=== PATIENT | female | born 1995 | race Caucasian/White ===

== ENCOUNTER 2021-03-27 14:53 | Emergency (ER) | payer OTHER, SELFPAY ==
--- NOTE | 2021-03-27 14:56 | ED.GENADULT ---
HPI - General Adult General Chief complaint: Unspecified Stated complaint: stomach pain Time Seen by Provider: 03/27/21 14:56 Source: patient and RN notes reviewed History of Present Illness HPI narrative: Patient is a 25-year-old female who presents the urgent care with complaints of improving abdominal cramps. Patient states that she had some back cramps with loose stools radiating to her abdomen yesterday while working. States that her boss let her leave work but stated she would need to be seen in the facility in order to come back to work. Patient states that her symptoms have nearly subsided and she just needs a work note . Patient denies of any current abdominal pain, nausea, vomiting, diarrhea, fever. No other acute complaints. States that her last meal prior to her symptoms was a whopper from [employer]. No acute distress noted. Patient aware of the plan of care. Some parts of this dictation were generated by voice recognition software and may contain typographical and/or grammatical inaccuracies. Related Data Home Medications Medication Instructions Recorded Confirmed No Home Medications 03/27/21 03/27/21 Allergies Allergy/AdvReac Type Severity Reaction Status Date / Time No Known Allergies Allergy Verified 03/27/21 15:02 Review of Systems Review of Systems: CONSTITUTIONAL: Denies fever, chills, or sweats. EYES: Denies visual changes, redness, or discharge. ENT: Denies rhinorrhea, congestion, sore throat, or otalgia. CARDIOVASCULAR: Denies chest pain, palpitations, or edema. RESPIRATORY: Denies cough or dyspnea. GASTROINTESTINAL: Denies abdominal pain, nausea, vomiting, or diarrhea. GENITOURINARY: Denies dysuria or hematuria. SKIN: Denies rash or itching. MUSCULOSKELETAL: Denies back pain, joint pain, or myalgia. NEUROLOGIC: Denies headache, numbness, or weakness. All other systems reviewed are negative, except as documented in HPI. PMFSH Comments At the time of my signature, I reviewed and agree with the nursing past medical, surgical, social, and family history. There is no relevant family history pertinent to the patient complaint. Exam Narrative: GENERAL: This is a well-nourished, well-developed patient, in no apparent distress. HEAD: normocephalic, atraumatic. EYES: PERRL. Sclera clear/white. Vision is grossly intact. EARS: External ears normal NOSE: External nose normal with no obvious nasal discharge, nares without redness, no rhinorrhea. THROAT: Mucous membranes moist NECK: Neck supple CARDIOVASCULAR: Regular rate and rhythm without murmurs, gallops, or rubs. RESPIRATORY: Clear to auscultation. Breath sounds equal bilaterally. No wheezes, rales, or rhonchi. GASTROINTESTINAL: Abdomen soft, mild diffuse tenderness, nondistended. Bowel sounds are hyppoactive. No guarding. SKIN: warm, intact with no suspicious lesions or rash, good texture and turgor. NEURO: awake, alert, and oriented to person, place and time. There were no obvious focal neurologic abnormalities. EXTREMITIES: No clubbing, cyanosis, or edema. Course Vital Signs Vital signs: Vital Signs Temperature 98.4 F 03/27/21 15:00 Pulse Rate 93 03/27/21 15:00 Respiratory Rate 20 03/27/21 15:00 Blood Pressure 135/68 03/27/21 15:00 Pulse Oximetry 99 03/27/21 15:00 Temperature 98.4 F 03/27/21 15:00 Pulse Rate 93 03/27/21 15:00 Respiratory Rate 20 03/27/21 15:00 Blood Pressure 135/68 03/27/21 15:00 Pulse Oximetry 99 03/27/21 15:00 Reviewed Medical Decision Making MDM Narrative Medical decision making narrative: Patient stated she was not worried about any testing while at the facility. Just needs her work note that she was seen. Advised the patient to use Pepto-Bismol for any recurrent symptoms. Eat a bland diet and increase your water intake. If you develop any increase in symptoms associated with nausea, vomiting, abdominal pain or fever?go to the emergency room. Follow-up with your PCP within
[2021-03-27 15:00] VITALS: BP 135/68; PULSE 93; RESP 20; TEMP 36.9; O2SAT 99
== END 2021-03-27 15:11 | disposition home or self-care (01) ==
PROVIDERS: Emergency Provider Nurse Practitioner Family
DX: R10.9 Unspecified abdominal pain (principal)
CPT/HCPCS: 99211; G0463

== ENCOUNTER 2022-01-07 01:00 | Day surgery (SDC) | payer OTHER, SELFPAY ==
[2022-01-03 14:17] VITALS: BMI 27.9
--- NOTE | 2022-01-03 14:25 | PC.NURSE ---
Report to the Outpatient Waiting Room, entrance under the green pavilion located off [facility], at time 0600 on date 01/07/22. OR Time: 0730. - You and your visitor will be asked a series of questions to screen for COVID 19 for your protection. - Only one visitor is allowed at this time. - The patient visitor is requested to leave or wait in car when not with patient. - A mask is required within the hospital. Patients may have clear liquids (water, carbonated beverages, clear teas, apple juice) until 3 hours prior to surgery with a maximum of 20 ounces. - No food from midnight until time of surgery Take the following medications with a SIP of water the morning of surgery: NONE Medications to discontinue per physician: N/A Date to take last dose: N/A Please no make-up, nail italian, hairspray, perfume, deodorant, or body powder the day of surgery. No jewelry (including any body piercings) or valuables the day of surgery, leave them at home. Please take a shower or bath the night before, or the morning of, surgery with an antibacterial soap. Wear comfortable, loose fitting clothing. - Jewelry must be removed prior to entering the operating room. Rings and piercings that are not removed may be cut off. - The hospital will not accept responsibility for valuables. - Please leave all valuables, including medications, at home the day of surgery. If you are going home after surgery, a licensed sweeper driver must drive you home. - NO public transportation without another adult. - We recommend that an adult stay with you for 24 hours following discharge. - We also recommend that you do not drive, make important decision, drink alcoholic beverages, or take any drugs that were not prescribed by your health care provider for at least 24 hours after your discharge time. Follow any additional instructions given to you from your surgeon. If you or anyone in your household have experienced Covid symptoms in the past week, please notify your surgeon or the nurse liaison at the phone number below for possible testing. Telephone instructions given to PT - AVRIL MASON and asked if any additional questions and then verbalized understanding. Patient advised to call surgeon office or pre surgery nurse liaison [phone] if any additional questions.
--- NOTE | 2022-01-03 16:33 | PM.IMHP ---
H&P: HPI History of Present Illness Date/Time: 01/03/22 16:33 26-year-old 2 para 1 0 1 1 female presents with vaginal spotting and heart tones absent in a 10 week gestation. No significant pain or other symptoms. Chief Complaint: Missed Review of Systems Review of Systems: All systems reviewed & are unremarkable except as noted in HPI and below PMFSH Past Medical History Medical History Purulent drainage of both ears through ear tube x 7 Surgical History Surgical History History of tonsillectomy Family History Family History Grandparent Acute myocardial infarction maternal grandfather Social History Social History Smoking status: Current some day smoker Additional smoking assessment comments: SOCIAL SMOKING Alcohol intake: current Alcohol use details: RARE, WHEN NOT Substance use: current Substance use type: marijuana Other substance usage details: daily Additional living arrangements comments: DAUGHTER 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 Gender identity (if verbalized by the patient): Female Sexual Orientation (if Verbalized by the Patient): Straight or Heterosexual Spiritual care concerns: No Meds Home Medications and Allergies Home Medications Medication Instructions Recorded Confirmed Type No Home Medications 03/27/21 01/03/22 History Allergies Allergy/AdvReac Type Severity Reaction Status Date / Time No Known Allergies Allergy Verified 01/03/22 14:17 Exam Const: General: cooperative, healthy appearing and comfortable Resp: Effort & Inspection: normal respiratory effort Auscultation: clear to auscultation bilaterally Cardio: Rate: regular rate Rhythm: regular rhythm GI: Inspection: normal to inspection Auscultation: normal bowel sounds : External Female Exam: normal external appearance Speculum Exam - Vagina: normal appearance of the vagina Speculum Exam - Cervix: normal appearance of the cervix Bimanual exam- vagina & uterus: enlarged ( 10-12 week size) Bimanual Exam- Adnexa, other: normal adnexae Assessment and Plan Assessment and plan (1) Missed with demise before 20 completed weeks of gestation: Code(s): O02.1 - Missed Status: Acute Assessment and Plan: proceed with suction curettage
[2022-01-07 06:14] VITALS: BP 117/66; PULSE 102; RESP 12; TEMP 36.7; O2SAT 100
[2022-01-07] MEDS: LACTATED RINGERS 1,000 ML 30 ML IV CONT (06:45)
--- NOTE | 2022-01-07 06:45 | P.PNAN_ITS ---
Anes - Initial Pre Proc Eval Procedure: Operation Date: 01/07/22 07:30 Proposed Procedures p Suction Dilation and Curettage - Yonatan Cuello MD Date/Time: 01/07/22 06:45 Surgeon: Yonatan Cuello MD Pre Op Diagnosis: missed AB Patient Data Age: 26 Gender: F Height: 1.55 m Weight: 67.13 kg Allergies Allergy/AdvReac Type Severity Reaction Status Date / Time No Known Allergies Allergy Verified 01/03/22 14:17 Home Medications Medication Instructions Recorded Confirmed Type No Home Medications 03/27/21 01/03/22 History Patient hx anesthesia problems: none Family hx anesthesia problems: none Results Review: All pre-operative results and documents have been reviewed as part of the pre- operative evaluation. [facility], [facility] Past Medical History Medical History Purulent drainage of both ears through ear tube x 7 Surgical History Surgical History (Updated 01/07/22 @ 06:45 by Shai Jett MD) H/O myringotomy History of tonsillectomy Family History Family History Grandparent Acute myocardial infarction maternal grandfather Social History Social History Smoking status: Current some day smoker Additional smoking assessment comments: SOCIAL SMOKING Alcohol intake: current Alcohol use details: RARE, WHEN NOT Substance use: current Substance use type: marijuana Other substance usage details: daily Living arrangements: with family Additional living arrangements comments: DAUGHTER 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 Gender identity (if verbalized by the patient): Female Sexual Orientation (if Verbalized by the Patient): Straight or Heterosexual Spiritual care concerns: No Anes - Eval Final PreProcedure Day of Procedure 01/07/22 06:45 Patient weight: overweight Heart: regular rate and rhythm Lungs: clear to auscultation Airway: Mallampati scale class II Neurological: alert and oriented Last oral intake: >/= 8 hours ASA classification: II Emergent: no Anesthetic plan: proceed Anesthesia type and monitoring: general GIVS and standard monitoring Results Review: All pre-operative results and documents have been reviewed as part of the pre- operative evaluation. Informed Consent: The patient's anesthetic plan and its attendant risks and benefits were discussed with the patient/family/POA. Questions were solicited and answers provided to the satisfaction of the patient/family/POA.
--- NOTE | 2022-01-07 07:03 | WPDHPUPDATE1 ---
History and Physical Update Update Date/Time: 01/07/22 07:03 History and Physical has been reviewed, including an updated exam of the patient. There are NO changes in the patient's condition. Risks, benefits, and alternatives have been discussed and questions answered. Patient agrees to proceed with procedure.
[2022-01-07] MEDS: ACETAMINOPHEN 500 MG TABLET 1000 MG PO (07:11)
[2022-01-07 07:38] VITALS: BP 101/60; PULSE 85; RESP 16; O2SAT 93
--- NOTE | 2022-01-07 07:43 | W.PM.PROC2 ---
Procedure Note - Detailed Date of Procedure 01/07/22 Pre-op Diagnosis missed AB in 1st trimester Post-op Diagnosis Same Procedure Performed Suction curettage Surgeon Yonatan Cuello MD Anesthesia MAC Indications Missed A/B 11 weeks. Findings Moderate products of conception Description of Procedure Patient was prepped and draped in usual manner for this procedure. Cervix dilated to allow the 9 suction curette to be placed, using suction products of conception were removed.Sharp curette was used to assess the rest of the endometrial cavity with no remaining tissue. Suction curette passed 1 remaining time with no significant tissue. There was no bleeding and the patient are procedure well sent to recovery room stable condition. Estimated Blood Loss 150 Drains No Packing No Pathology Yes Complications No immediate complications Condition Stable Disposition PACU [facility] Billing Surgery - Charge Forward: Surgery Billing
[2022-01-07] MEDS: fentaNYL CITRATE INJ (*CRX) 100 MCG/2 ML VIAL 25 MCG IV PUSH (07:56)
[2022-01-07 08:10] VITALS: BP 102/53; PULSE 90; RESP 20
--- NOTE | 2022-01-07 08:18 | SUR.PHASEII ---
0818 - blood type - A positive result noted
[2022-01-07 08:40] VITALS: BP 96/59; PULSE 81; RESP 20
[2022-01-07 08:50] VITALS: BP 95/57; PULSE 81; RESP 20
== END 2022-01-07 08:53 | disposition home or self-care (01) ==
PROVIDERS: Visit Provider Obstetrics & Gynecology
PROC: (CPT 59820; principal; 2022-01-07 07:30)
DX: O02.1 Missed abortion (principal); F17.210 Nicotine dependence, cigarettes, uncomplicated; F12.90 Cannabis use, unspecified, uncomplicated
CPT/HCPCS: 59820; 36415; 85461; 88305; A9270; J2250; J2704; J3010; J7120

== ENCOUNTER 2022-04-17 15:02 | Outpatient (CLI) | payer OTHER, SELFPAY ==
--- NOTE | ~2022-04-17 | US_ITS ---
EXAMINATION: US OB <=14 wk fetus w TV DATE: 04/17/2022 15:55 INDICATION: Decreased beta-hCG levels. Pelvic pain. TECHNIQUE: Real-time transabdominal and transvaginal obstetric ultrasound. FINDINGS: No prior studies for comparison. The uterus measures 6.4 x 4.4 x 5.1 cm. There is an intrauterine gestational sac with mean sac diamet er corresponding to 5 week 3 day gestation. No evidence for pole or yolk sac. There is a small corpus luteal cyst of the left ovary measuring 1.6 cm. The right ovary is unremarkable. IMPRESSION: 1: Intrauterine gestational sac corresponding to 5 week 3 day gestation. No evidence for pole or yolk sac. This may be due to early gestational age. Recommend follow-up with serial quantitative b eta-hCG levels and ultrasound as clinically warranted. Reviewed, dictated and finalized at location B. IMPRESSION: 1: Intrauterine gestational sac corresponding to 5 week 3 day gestation. No ev idence for pole or yolk sac. This may be due to early gestational age. Re commend follow-up with serial quantitative beta-hCG levels and ultrasound as cl inically warranted.
== END 2022-04-17 15:03 | disposition home or self-care (01) ==
LOC: ANHIMG 15:04
PROVIDERS: Visit Provider Obstetrics & Gynecology
DX: O20.0 Threatened abortion (principal); Z3A.01 Less than 8 weeks gestation of pregnancy
CPT/HCPCS: 76801; 76817

== ENCOUNTER 2022-04-20 09:41 | Emergency (ER) | payer OTHER, SELFPAY ==
--- NOTE | ~2022-04-20 | US_ITS ---
EXAMINATION: US OB <=14 wk fetus w TV DATE: 04/20/2022 11:42 INDICATION: Vaginal bleeding. Patient is . TECHNIQUE: Real-time transabdominal and transvaginal obstetric ultrasound. FINDINGS: 04/17/2022 The uterus measures 8.6 x 4.7 x 4.7 cm. There is an intrauterine gestational sac which corresponds to a 5 week 4 day gestation. No pole or yolk sac identified. Left ovary is unremarkable. Right ov bam not visualized. IMPRESSION: 1. Intrauterine gestational sac corresponding to 5 week 4 day gestation. No evidence for pole o r yolk sac. Recommend follow-up serial quantitative beta-hCG levels and ultrasound as clinically carlos anted. Reviewed, dictated and finalized at location A. IMPRESSION: 1. Intrauterine gestational sac corresponding to 5 week 4 day gestation. No yareli dence for pole or yolk sac. Recommend follow-up serial quantitative beta- hCG levels and ultrasound as clinically warranted.
[2022-04-20 09:46] VITALS: BP 119/55; PULSE 95; RESP 18; TEMP 36.4; O2SAT 100
--- NOTE | 2022-04-20 10:03 | ED.PREGNANCY ---
HPI - General Chief complaint: Vaginal Bleeding Stated complaint: vaginal bleeding, 7 wks Time Seen by Provider: 04/20/22 09:47 Source: patient Mode of arrival: ambulatory Limitations: no limitations History of Present Illness HPI Narrative: This is a 26-year-old G3, P1, about 7 weeks , that presents to the emergency department for vaginal bleeding. Reports that has been ongoing over the last 5 days. She has had blood work and an ultrasound done with her OB, Dr. Cuello. Reports they saw a gestational sac, but no fetus. Reports her bleeding and cramping worsened a little bit today which prompted her to be seen. She also reports some dysuria. Denies fevers. Related Data Allergies Allergy/AdvReac Type Severity Reaction Status Date / Time No Known Allergies Allergy Verified 04/20/22 09:49 Review of Systems Review of Systems: CONSTITUTIONAL: Denies fever GASTROINTESTINAL: Reports pelvic cramping GENITOURINARY: Reports dysuria. Denies hematuria. All systems reviewed & are unremarkable except as noted in HPI and below PMFSH Past Medical History Medical History Missed with demise before 20 completed weeks of gestation 01/07/22 suction d&c Purulent drainage of both ears through ear tube x 7 Surgical History Surgical History H/O myringotomy History of gynecological procedure (01/07/22) suction D&C missed AB @ 1 weeks History of tonsillectomy Family History Family History Grandparent Acute myocardial infarction maternal grandfather Social History Social History Smoking status: Current some day smoker Additional smoking assessment comments: SOCIAL SMOKING Alcohol intake: current Alcohol use details: RARE, WHEN NOT Substance use: current Substance use type: marijuana Other substance usage details: daily Additional living arrangements comments: DAUGHTER 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 HEAD: Normocephalic, atraumatic. EYES: EOMI. CHEST: Clear to auscultation. No respiratory distress. No wheezes rales or rhonchi HEART: Regular rate and rhythm. No murmur heard. Normal peripheral pulses. ABDOMEN: Soft, nontender, nondistended, normal active bowel sounds. EXTREMITIES: Normal range of motion. No edema. SKIN: Warm, dry, no rash. NEURO: No focal deficits. Alert and oriented x3. PSYCH: Normal mood and affect PELVIC: Normal external genitalia. Small amount of dark red blood in the vaginal vault. Cervix is normal, closed. Course Consultations Consultation #1: poke with patient's OB on-call. Patient is to follow-up in clinic for further evaluation and management. Date: 04/20/22 Time: 12:16 Vital Signs Vital signs: Vital Signs Temperature 97.5 F L 04/20/22 09:46 Pulse Rate 95 04/20/22 09:46 Respiratory Rate 18 04/20/22 09:46 Blood Pressure 119/55 L 04/20/22 09:46 Pulse Oximetry 100 04/20/22 09:46 Oxygen Delivery Room Air 04/20/22 09:46 Temperature 97.5 F L 04/20/22 09:46 Pulse Rate 95 04/20/22 09:46 Respiratory Rate 18 04/20/22 09:46 Blood Pressure 119/55 L 04/20/22 09:46 Pulse Oximetry 100 04/20/22 09:46 Oxygen Delivery Room Air 04/20/22 09:46 MDM - OB/Uterine Contractions MDM Narrative Medical decision making narrative: Patient presents to the emergency department for vaginal bleeding, about 7 weeks by LMP. Patient's vitals are stable. Hemoglobin is normal at 12. Quantitative beta-hCG 4064. Ultr
[2022-04-20 10:17] LABS: Basophils Percent Auto 0.2 % (0.2-1.2); Eosinophils Percent Auto 0.3 % (0-4.4); Hematocrit 38.5 % (37.0-47.0); Immature Granulocyte Absolute 0.02 K/mm3 (0.00-0.031); Immature Granulocyte Percent A 0.2 % (0-0.5); Lymphocytes Absolute Auto 2.49 K/mm3 (0.9-3.2); Lymphocytes Percent Auto 26.2 % (18.3-44.2); Mean Corpuscular HGB Conc 31.2 g/dl (32-36); Mean Corpuscular Hemoglobin 29.2 pg (26-34); Mean Corpuscular Volume 93.7 fl (80-100); Mean Platelet Volume 9.5 fl (7.4-10.4); Monocytes Absolute Auto 0.4 K/mm3 (0.1-0.6); Neutrophils Absolute Auto 6.6 K/mm3 (1.3-6.7); Neutrophils Percent Auto 69.1 % (45.5-73.1); Platelet Count Result 312 k/mm3 (150-375); Red Blood Count 4.11 M/mm3 (4.2-5.4); Red Cell Distribution Width 13.2 % (11.5-14.5); White Blood Count 9.5 K/mm3 (4.5-10.0)
[2022-04-20 10:31] LABS: Anion Gap 10 mmol/L (8-16); Blood Urea Nitrogen 14 mg/dL (7-17); Calcium 9.2 mg/dL (8.4-10.2); Carbon Dioxide 25 mmol/L (22-30); Chloride 103 mmol/L (98-107); Estimated CRCL calculation 109 ml/min; Estimated Glomerular Filt Rate > 60; Glucose 97 mg/dL (65-110); Potassium 3.4 mmol/L (3.4-5.0); Sodium 138 mmol/L (137-145)
--- NOTE | 2022-04-20 10:56 | PC.NURSE ---
Assumed pt from RM Santos
[2022-04-20 11:18] LABS: Add Urine Microscopic? YES; Appearance Urine Clear (Clear); Bilirubin Urine Negative (Negative); Blood Urine 1+ (Negative); Color Urine Yellow (Yellow); Glucose Urine UA Negative (Negative); Ketones Urine Negative (Negative); Leukocyte Esterase Ur Negative LEU/UL (Negative); Mucus Urine Rare /lpf; Nitrate Urine Negative (Negative); Protein Urine Negative (Negative); Specific Grav Ur 1.021 (1.001-1.035); Squamous Epithelial Cell Urine Rare /hpf (Few); Urobilinogen Urine Negative mg/dL (<2.0); WBC Urine 0-3 /hpf
== END 2022-04-20 12:39 | disposition home or self-care (01) ==
PROVIDERS: Physician Assistant; Emergency Provider Emergency Medicine
DX: O20.0 Threatened abortion (principal); Z3A.01 Less than 8 weeks gestation of pregnancy; O99.331 Smoking (tobacco) complicating pregnancy, first trimester; F17.200 Nicotine dependence, unspecified, uncomplicated; O99.321 Drug use complicating pregnancy, first trimester; F12.90 Cannabis use, unspecified, uncomplicated
CPT/HCPCS: 36415; 76801; 76817; 80048; 81001; 84702; 85025; 85461; 99284

== ENCOUNTER 2022-04-22 13:33 | Outpatient (RCR) | payer OTHER, SELFPAY | END 2022-07-14 23:59 | disposition home or self-care (01) | LOC: ANHLAB 13:33 | PROVIDERS: Visit Provider Obstetrics & Gynecology | DX: N92.6 Irregular menstruation, unspecified (principal) | CPT/HCPCS: 36415; 84702 ==

== ENCOUNTER 2022-04-24 09:47 | Outpatient (CLI) | payer OTHER, SELFPAY ==
--- NOTE | ~2022-04-24 | US_ITS ---
EXAMINATION: US OB transvaginal DATE: 04/24/2022 10:36 INDICATION: Threatened during first trimester TECHNIQUE: Real-time pelvic transabdominal and transvaginal ultrasound was performed. COMPARISON: 04/20/2022 FINDINGS: The uterus measures 8.4 x 4.8 x 5.3 cm. There is an intrauterine fluid collection measurin g 9 mm, previously 8 mm. This correlates with an estimated gestational age of 5 weeks and 5 day(s) (+ /-) 4 day(s). No definite pole or yolk sac are identified. The right ovary measures 2.2 x 1.7 x 2.0 cm. The left ovary measures 2.6 x 2.8 x 2.1 cm. There is a 2 .2 cm complex fluid collection of the left ovary which may reflect a corpus luteum. There is normal v ascular flow in the ovaries. There is no free fluid in the pelvis. IMPRESSION: 1. Intrauterine fluid collection which may reflect an early gestational sac with slight increase in s ize. If the patient is clinically stable, recommend followup with serial beta-hCG and ultrasound. Reviewed, dictated and finalized at location A. IMPRESSION: 1. Intrauterine fluid collection which may reflect an early gestational sac wit h slight increase in size. If the patient is clinically stable, recommend follo wup with serial beta-hCG and ultrasound.
== END 2022-04-24 09:48 | disposition home or self-care (01) ==
LOC: ANHIMG 09:48
PROVIDERS: Visit Provider Obstetrics & Gynecology
DX: O20.0 Threatened abortion (principal)
CPT/HCPCS: 76817

== ENCOUNTER 2022-04-26 01:13 | Day surgery (SDC) | payer OTHER, SELFPAY ==
[2022-04-23 11:53] VITALS: BMI 29.7
--- NOTE | 2022-04-23 12:00 | PC.NURSE ---
Report to the Outpatient Waiting Room, entrance under the green pavilion located off [facility], at time ___1100____ on date _04/26/22 . OR Time: ___1PM . Time changes happen often and if your time is changed the preop area will call you the afternoon before. - You and your visitor will be asked to self-screen and do not enter if you have any COVID symptoms. - We encourage only one visitor and NO visitors under age 16 are allowed at this time. Your visitor will receive communication by the phone number that is given day of service. - The patient visitor is requested to social distance or may leave the building when not with patient due to restrictions. - A mask is required within the hospital. Patients may have clear liquids (water, carbonated beverages, clear teas, apple juice) until 3 hours prior to surgery (1000 AM) with a maximum of 20 ounces. - No food from midnight until time of surgery - Infants may have breast milk until 4 hours before surgery, formula 6 hours prior to surgery. - Children will be allowed to drink immediately following surgery. If applicable, please bring a bottle or sippy cup to assist with drinking. Juice, water, soda, and popsicles are readily available. For infants on formula, please bring formula the day of surgery. Pacifiers are allowed. Take the following medications with a SIP of water the morning of surgery: N/A Medications to discontinue per physician N/A Date to take last dose Please no make-up, nail serbian, hairspray, perfume, deodorant, or body powder the day of surgery. No jewelry (including any body piercings) or valuables the day of surgery, leave them at home. Please take a shower or bath the night before, or the morning of, surgery with an antibacterial soap. Wear comfortable, loose fitting clothing. Children are encouraged to wear pajamas. - Jewelry must be removed prior to entering the operating room. Rings and piercings that are not removed may be cut off. - The hospital will not accept responsibility for valuables. - Please leave all valuables, including medications, at home the day of surgery. If you are going home after surgery, a licensed stud driver must drive you home. - NO public transportation without another adult. - We recommend that an adult stay with you for 24 hours following discharge. - We also recommend that you do not drive, make important decision, drink alcoholic beverages, or take any drugs that were not prescribed by your health care provider for at least 24 hours after your discharge time. For Pediatric surgeries, we recommend two adults accompany the child home. Follow any additional instructions given to you from your surgeon. If you or anyone in your household have experienced Covid symptoms in the past week, please notify your surgeon or the nurse liaison at the phone number below for possible testing. Telephone instructions given to ____PT and asked if any additional questions and then verbalized understanding. Patient advised to call surgeon office or pre surgery nurse liaison [phone] if any additional questions.
--- NOTE | 2022-04-26 11:50 | WPDHPUPDATE1 ---
History and Physical Update Update Date/Time: 04/26/22 11:50 History and Physical has been reviewed, including an updated exam of the patient. There are NO changes in the patient's condition. Risks, benefits, and alternatives have been discussed and questions answered. Patient agrees to proceed with procedure. Proceed with suction D&C for MAB Risks and benefits explained in detail Will give doxycycline 200mg PO once post-op
[2022-04-26] MEDS: ACETAMINOPHEN 500 MG TABLET 1000 MG PO (12:08)
[2022-04-26 12:11] VITALS: BP 110/64; PULSE 88; RESP 20; TEMP 37.4; O2SAT 100
[2022-04-26] MEDS: LACTATED RINGERS 1,000 ML 30 ML IV CONT (12:30)
--- NOTE | 2022-04-26 12:50 | P.PNAN_ITS ---
Anes - Initial Pre Proc Eval Procedure: Operation Date: 04/26/22 13:00 Proposed Procedures p Suction Dilatation and Curettage - Estefani Gibbons MD Date/Time: 04/26/22 12:50 Surgeon: Estefani Gibbons MD Pre Op Diagnosis: missed AB Patient Data Age: 26 Gender: F Height: 1.55 m Weight: 71.36 kg Allergies Allergy/AdvReac Type Severity Reaction Status Date / Time No Known Allergies Allergy Verified 04/26/22 11:59 Home Medications Medication Instructions Recorded Confirmed Type sertraline 50 mg tablet (Zoloft) 50 mg PO DAILY #90 tabs 04/24/22 04/26/22 Rx Patient hx anesthesia problems: none Family hx anesthesia problems: none Results Review: All pre-operative results and documents have been reviewed as part of the pre- operative evaluation. [facility] Past Medical History Medical History Missed with demise before 20 completed weeks of gestation 01/07/22 suction d&c Purulent drainage of both ears through ear tube x 7 Surgical History Surgical History H/O myringotomy History of gynecological procedure (01/07/22) suction D&C missed AB @ 1 weeks History of tonsillectomy Family History Family History Grandparent Acute myocardial infarction maternal grandfather Social History Social History Smoking status: Current some day smoker Second hand tobacco smoke exposure: Yes (OCCASIONALLY) Additional smoking assessment comments: PT STATES SOCIAL SMOKER - BUT NONE FOR LAST COUPLE OF WEEKS Alcohol intake: current Alcohol use details: STATES VERY RARE & NOT WHILE Substance use: current Substance use type: marijuana Other substance usage details: daily Last use: 04/22/22 Living arrangements: with family Additional living arrangements comments: LIVES WITH DAUGHTER 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 Gender identity (if verbalized by the patient): Female Sexual Orientation (if Verbalized by the Patient): Straight or Heterosexual Spiritual care concerns: No Anes - Eval Final PreProcedure Day of Procedure 04/26/22 12:50 Patient weight: overweight Heart: regular rate and rhythm Lungs: clear to auscultation Airway: Mallampati scale class II Neurological: alert and oriented Last oral intake: >/= 8 hours ASA classification: II Emergent: no Anesthetic plan: proceed Anesthesia type and monitoring: general GIVS and standard monitoring Results Review: All pre-operative results and documents have been reviewed as part of the pre- operative evaluation. Informed Consent: The patient's anesthetic plan and its attendant risks and benefits were disc ussed with the patient/family/POA. Questions were solicited and answers provided to the satisfaction of the patient/family/POA.
[2022-04-26] MEDS: KETOROLAC 30 MG/ML VIAL (*BKC) IV PUSH (13:11)
[2022-04-26 13:30] VITALS: BP 93/41; PULSE 85; RESP 14; O2SAT 93
--- NOTE | 2022-04-26 13:31 | W.PM.PROC2 ---
Procedure Note - Detailed Date of Procedure 04/26/22 Pre-op Diagnosis missed AB Post-op Diagnosis Same Procedure Performed Suction D&C Surgeon Estefani Gibbons MD Anesthesia MAC Findings Uterus sounded to 8cm, cervix closed but approximately 5-10cc of blood noted in the vault. Good hemostasis at the end of the case. Description of Procedure Gabriela was taken to the operating room where she was placed under sedation without complication. She was then prepped and draped in the usual sterile fashion in the dorsal lithotomy position with her legs in low Alberto stirrups. A time-out was performed and no preoperative antibiotics were indicated. A bivalve speculum was placed within the vagina where the cervix was easily identified. The anterior lip of cervix was grasped with single-tooth tenaculum. The uterus was gently sounded. The cervix was then serially dilated to allow for a 7 mm curved suction curette. The curette was placed at the fundus, suction was applied, and gentle turning in a clockwise fashion was performed. A significant amount of products of conception were removed 1st time, one additional pass was made and no further products were removed. The ultrasound was then used to visualize the endometrial lining. It appeared as if there might be a small amount of products of conception remaining. An additional pass with the suction curettage was made. The instruments were removed. The tenaculum site was noted to be bleeding even after pressure was applied. Using silver nitrate the bleeding then stopped. Good hemostasis was noted. All instruments were removed from the vagina. Sponge, lap, instrument, and needle counts were correct at the end the procedure. Estimated Blood Loss 10 Pathology Yes (products of conception) Complications No immediate complications Condition Stable Disposition Same day [facility] Billing Surgery - Charge Forward: Surgery Billing
[2022-04-26 14:00] VITALS: BP 96/54; PULSE 76; RESP 14; O2SAT 97
[2022-04-26] MEDS: DOXYCYCLINE HYCLATE 100 MG TABLET 200 MG PO (14:08)
[2022-04-26 14:30] VITALS: BP 111/67; PULSE 72; RESP 16
== END 2022-04-26 14:35 | disposition home or self-care (01) ==
PROVIDERS: Visit Provider Obstetrics & Gynecology
PROC: (CPT 59820; principal; 2022-04-26 13:00)
DX: O02.1 Missed abortion (principal); F12.90 Cannabis use, unspecified, uncomplicated; Z72.0 Tobacco use
CPT/HCPCS: 59820; 88305; A9270; J1100; J1885; J2250; J2704; J3010; J7120

== ENCOUNTER 2022-10-30 15:20 | Outpatient (CLI) | payer OTHER, SELFPAY | END 2022-10-30 15:21 | disposition home or self-care (01) | LOC: ANHLAB 15:22 | PROVIDERS: Visit Provider Obstetrics & Gynecology | DX: N91.2 Amenorrhea, unspecified (principal) | CPT/HCPCS: 36415; 84702 ==

== ENCOUNTER 2022-11-01 08:41 | Outpatient (CLI) | payer OTHER, SELFPAY | END 2022-11-01 08:42 | disposition home or self-care (01) | LOC: ANHLAB 08:43 | PROVIDERS: Visit Provider Obstetrics & Gynecology | DX: N91.2 Amenorrhea, unspecified (principal) | CPT/HCPCS: 36415; 84702 ==

== ENCOUNTER 2022-11-28 16:30 | Outpatient (CLI) | payer OTHER, SELFPAY ==
[2022-11-28 16:52] LABS: Basophils Percent Auto 0.2 % (0.2-1.2); Eosinophils Absolute Auto 0.1 K/mm3 (0-0.3); Eosinophils Percent Auto 0.5 % (0-4.4); Hematocrit 37.6 % (37.0-47.0); Hemoglobin 12.1 g/dL (12.0-15.0); Immature Granulocyte Absolute 0.08 K/mm3 (0.00-0.031); Immature Granulocyte Percent A 0.6 % (0-0.5); Lymphocytes Absolute Auto 2.46 K/mm3 (0.9-3.2); Lymphocytes Percent Auto 18.7 % (18.3-44.2); Mean Corpuscular HGB Conc 32.2 g/dl (32-36); Mean Corpuscular Hemoglobin 29.4 pg (26-34); Mean Corpuscular Volume 91.5 fl (80-100); Mean Platelet Volume 10.1 fl (7.4-10.4); Monocytes Absolute Auto 0.6 K/mm3 (0.1-0.6); Monocytes Percent Auto 4.2 % (2.6-8.5); Neutrophils Percent Auto 75.8 % (45.5-73.1); Platelet Count Result 297 k/mm3 (150-375); Red Blood Count 4.11 M/mm3 (4.2-5.4); Red Cell Distribution Width 13.4 % (11.5-14.5); White Blood Count 13.1 K/mm3 (4.5-10.0)
[2022-11-28 17:56] LABS: HIV 1/2 Ab P24 Ag Result Negative (Negative)
[2022-11-28 18:09] LABS: Hepatitis B Surface Antigen Negative (Negative); Rubella IgG Antibody 13.8 IU/ML
[2022-11-29 08:26] LABS: Rapid Plasma Reagin Non-Reactive (NonReactive)
[2022-12-02 11:19] LABS: CMV IgG Antibody 0.96 U/mL (<0.60)
== END 2022-11-28 16:31 | disposition home or self-care (01) ==
LOC: ANHLAB 16:31
PROVIDERS: Visit Provider Obstetrics & Gynecology
DX: Z34.90 Encounter for supervision of normal pregnancy, unspecified, unspecified trimester (principal); Z3A.00 Weeks of gestation of pregnancy not specified
CPT/HCPCS: 36415; 85025; 86592; 86644; 86703; 86747; 86762; 86787; 86850; 86900; 86901; 87086; 87340; G0432

== ENCOUNTER 2023-02-03 10:34 | Emergency (ER) | payer OTHER, SELFPAY ==
[2023-02-03] VITALS (10 sets, daily range): BP systolic 90–137; BP diastolic 66–77; PULSE 104; RESP 16; TEMP 36.1; O2SAT 98–100
--- NOTE | ~2023-02-03 | US_ITS ---
US OB limited 02/03/2023 12:15 Indication: Lower abdominal pain. 18 weeks . Procedure: High-resolution Limited obstetrical ultrasound Comparison: 11/11/2022 Findings: There is a single living intrauterine in vertex presentation. Placenta is posteri or without previa. The placenta is grossly normal, without suggestion of placenta abruption. However , ultrasound is not diagnostic of abruption since acute hemorrhage can be isoechoic to be placenta. Recommend clinical correlation. Amniotic fluid volume is subjectively normal. heart rate is 13 3 BPM. Placenta is posterior. Impression: 1: Single living intrauterine in vertex presentation. No abnormality identified. Reviewed, dictated and finalized at location A. Impression: 1: Single living intrauterine in vertex presentation. No abnormality identified.
--- NOTE | 2023-02-03 11:41 | ED.NAVMDI ---
HPI - Nausea/Vomiting/Diarrhea General Chief complaint: Nausea/Vomiting/Diarrhea Stated complaint: 18 weeks preg/vomiting Time Seen by Provider: 02/03/23 11:32 History of Present Illness HPI Narrative: 27-year-old female presents to the emergency room today for nausea and vomiting this morning. She is 18 weeks . She noticed that there were some streaks of blood in the vomit and this made her very nervous. She has some mild discomfort in the lower abdomen. No vaginal bleeding. No cramping. No dysuria or hematuria. No back pain. She is feeling better now with no further nausea vomiting. No fever or chills. Related Data Allergies Allergy/AdvReac Type Severity Reaction Status Date / Time No Known Allergies Allergy Verified 02/03/23 11:27 Review of Systems Review of Systems: CONSTITUTIONAL: Denies fever, chills, or sweats. ENT: Denies rhinorrhea, congestion, sore throat, or otalgia. CARDIOVASCULAR: Denies chest pain, palpitations, or edema. RESPIRATORY: Denies cough or dyspnea. GASTROINTESTINAL: as per HPI GENITOURINARY: Denies dysuria or hematuria. SKIN: Denies rash or itching. MUSCULOSKELETAL: Denies back pain, joint pain, or myalgia. NEUROLOGIC: Denies headache, numbness, dizziness, or weakness. PSYCHIATRIC: Denies anxiety or depression. [facility] Past Medical History Medical History Missed with demise before 20 completed weeks of gestation 01/07/22 suction d&c Purulent drainage of both ears through ear tube x 7 Surgical History Surgical History H/O myringotomy History of gynecologic surgery suction D&C - 04/30/2022 History of gynecological procedure (01/07/22) suction D&C missed AB @ 1 weeks History of tonsillectomy Family History Family History Grandparent Acute myocardial infarction maternal grandfather Social History Social History (Updated 01/22/23 @ 17:16 by Wanda Dumont MA) Smoking status: Current some day smoker Tobacco type: cigarettes Second hand tobacco smoke exposure: Yes (OCCASIONALLY) Additional smoking assessment comments: PT STATES SOCIAL SMOKER - BUT NONE FOR LAST COUPLE OF WEEKS Alcohol intake: never Substance use: former Substance use type: marijuana Other substance usage details: daily Last use: 04/22/22 Lack of Transportation: No Lack of Food: Never True Current Housing: I Have Housing Concerned About Future Housing: Decline to Answer Difficulty Paying Gas/Electric Bills: Decline to Answer Difficulty Paying for Meds: Decline to Answer Currently Unemployed: Decline to Answer Education: Decline to Answer Difficulty w/ Childcare or Family Care: Decline to Answer Living arrangements: with family Additional living arrangements comments: LIVES WITH DAUGHTER Occupation/Education: unemployed Gender identity (if verbalized by the patient): Female Sexual Orientation (if Verbalized by the Patient): Straight or Heterosexual Spiritual care concerns: No Course Vital Signs Vital signs: Vital Signs Temperature 36.1 C L 02/03/23 10:38 Pulse Rate 104 H 02/03/23 10:38 Respiratory Rate 16 02/03/23 10:38 Blood Pressure 137/68 02/03/23 10:38 Pulse Oximetry 100 02/03/23 10:38 Temperature 36.1 C L 02/03/23 10:38 Pulse Rate 104 H 02/03/23 10:38 Respiratory Rate 16 02/03/23 10:38 Blood Pressure 102/67 02/03/23 13:10 Pulse Oximetry 99 02/03/23 13:10 MDM - Nausea/Vomiting/Diarrhea MDM Narrative Medical decision making narrative: Pt has not had any further vomiting since arrival. Unremarkable work up. Pt agrees to follow up with [facility] on as scheduled. Lab Data Attestation: I reviewed the patient's lab results. 02/03/23 11:50 02/03/23 11:50 Labs: Lab Results 02/03/23 07
[2023-02-03 12:03] LABS: Basophils Percent Auto 0.2 % (0.2-1.2); Eosinophils Absolute Auto 0.1 K/mm3 (0-0.3); Eosinophils Percent Auto 0.5 % (0-4.4); Hematocrit 34.2 % (37.0-47.0); Hemoglobin 10.9 g/dL (12.0-15.0); Immature Granulocyte Absolute 0.11 K/mm3 (0.00-0.031); Immature Granulocyte Percent A 0.9 % (0-0.5); Lymphocytes Absolute Auto 1.91 K/mm3 (0.9-3.2); Lymphocytes Percent Auto 15.4 % (18.3-44.2); Mean Corpuscular HGB Conc 31.9 g/dl (32-36); Mean Platelet Volume 10.2 fl (7.4-10.4); Monocytes Absolute Auto 0.5 K/mm3 (0.1-0.6); Monocytes Percent Auto 3.9 % (2.6-8.5); Neutrophils Absolute Auto 9.8 K/mm3 (1.3-6.7); Neutrophils Percent Auto 79.1 % (45.5-73.1); Platelet Count Result 307 k/mm3 (150-375); Red Blood Count 3.76 M/mm3 (4.2-5.4); Red Cell Distribution Width 13.2 % (11.5-14.5); White Blood Count 12.4 K/mm3 (4.5-10.0)
[2023-02-03 12:05] LABS: Appearance Urine Clear (Clear); Bilirubin Urine Negative (Negative); Blood Urine Negative (Negative); Color Urine Yellow (Yellow); Glucose Urine UA Negative (Negative); Ketones Urine Negative (Negative); Leukocyte Esterase Ur Negative LEU/UL (Negative); Nitrate Urine Negative (Negative); Protein Urine Negative (Negative); Urobilinogen Urine 0.2 mg/dL (<2.0)
[2023-02-03 12:06] LABS: Add Urine Microscopic? NO
[2023-02-03] MEDS: SODIUM CHLORIDE 0.9% IV 1,000 ML 999 ML IV CONT (12:08)
[2023-02-03 12:12] LABS: Alanine Aminotransferase 30 U/L (6-35); Albumin Level 3.9 g/dL (3.5-5.1); Alkaline Phosphatase 82 U/L (38-126); Anion Gap 7 mmol/L (8-16); Aspartate Amino Transferase 29 U/L (14-36); Bilirubin,Total 0.4 mg/dL (0.2-1.3); Blood Urea Nitrogen 8 mg/dL (7-17); Calcium 9.6 mg/dL (8.4-10.2); Carbon Dioxide 25 mmol/L (22-30); Chloride 104 mmol/L (98-107); Estimated CRCL calculation 158 ml/min; Estimated Glomerular Filt Rate > 60; Glucose 96 mg/dL (65-110); Lipase 24 U/L (23-300); Potassium 3.8 mmol/L (3.4-5.0); Sodium 136 mmol/L (137-145)
== END 2023-02-03 13:12 | disposition home or self-care (01) ==
PROVIDERS: Emergency Provider Nurse Practitioner Family; PCP Obstetrics & Gynecology
DX: O21.9 Vomiting of pregnancy, unspecified (principal); O99.332 Smoking (tobacco) complicating pregnancy, second trimester; F17.210 Nicotine dependence, cigarettes, uncomplicated; Z3A.18 18 weeks gestation of pregnancy
CPT/HCPCS: 36415; 76815; 80053; 81003; 83690; 85025; 96360; 99284; J7030

== ENCOUNTER 2023-04-10 16:19 | Outpatient (CLI) | payer OTHER, SELFPAY ==
[2023-04-10 18:24] LABS: Basophils Percent Auto 0.2 % (0.2-1.2); Eosinophils Absolute Auto 0.1 K/mm3 (0-0.3); Eosinophils Percent Auto 0.5 % (0-4.4); Hematocrit 35.1 % (37.0-47.0); Hemoglobin 10.8 g/dL (12.0-15.0); Immature Granulocyte Absolute 0.37 K/mm3 (0.00-0.031); Immature Granulocyte Percent A 2.2 % (0-0.5); Lymphocytes Absolute Auto 2.35 K/mm3 (0.9-3.2); Lymphocytes Percent Auto 13.7 % (18.3-44.2); Mean Corpuscular HGB Conc 30.8 g/dl (32-36); Mean Corpuscular Hemoglobin 28.5 pg (26-34); Mean Corpuscular Volume 92.6 fl (80-100); Mean Platelet Volume 10.1 fl (7.4-10.4); Monocytes Absolute Auto 0.7 K/mm3 (0.1-0.6); Monocytes Percent Auto 3.8 % (2.6-8.5); Neutrophils Absolute Auto 13.7 K/mm3 (1.3-6.7); Neutrophils Percent Auto 79.6 % (45.5-73.1); Platelet Count Result 399 k/mm3 (150-375); Red Blood Count 3.79 M/mm3 (4.2-5.4); Red Cell Distribution Width 14.1 % (11.5-14.5); White Blood Count 17.2 K/mm3 (4.5-10.0)
[2023-04-10 18:33] LABS: Glucose 1 Hour PP 50gm Dose 108 mg/dL
[2023-04-10 19:14] LABS: HIV 1/2 Ab P24 Ag Result Negative (Negative)
== END 2023-04-10 16:20 | disposition home or self-care (01) ==
PROVIDERS: PCP Obstetrics & Gynecology; Visit Provider Obstetrics & Gynecology
DX: Z34.90 Encounter for supervision of normal pregnancy, unspecified, unspecified trimester (principal)
CPT/HCPCS: 36415; 82947; 85025; 86703; G0432

== ENCOUNTER 2023-05-28 16:00 | Outpatient (RCR) | payer OTHER, SELFPAY ==
[2023-05-14 18:50] VITALS: BP 122/62; PULSE 103
[2023-05-21 17:24] VITALS: BP 122/62; PULSE 108
[2023-05-28 18:57] VITALS: BP 119/67; PULSE 100
== END 2023-08-12 23:59 | disposition home or self-care (01) ==
LOC: ANHOBOP 16:00
PROVIDERS: PCP Obstetrics & Gynecology; Visit Provider Obstetrics & Gynecology
DX: O36.8130 Decreased fetal movements, third trimester, not applicable or unspecified (principal); Z3A.32 32 weeks gestation of pregnancy; Z3A.33 33 weeks gestation of pregnancy; Z3A.34 34 weeks gestation of pregnancy
CPT/HCPCS: 59025

== ENCOUNTER 2023-06-30 04:55 | Inpatient (IN) | payer OTHER, SELFPAY ==
[2023-06-30] VITALS (96 sets, daily range): BP systolic 80–150; BP diastolic 41–87; PULSE 91–143; RESP 16; TEMP 36.5–37.6; O2SAT 96–100; BMI 35.3
[2023-06-30 05:49] LABS: Hematocrit 37.1 % (37.0-47.0); Hemoglobin 11.9 g/dL (12.0-15.0); Immature Platelet Fraction Pct 13.4 % (0.9-11.2); Mean Corpuscular HGB Conc 32.1 g/dl (32-36); Mean Corpuscular Hemoglobin 28.9 pg (26-34); Mean Platelet Volume 12.3 fl (7.4-10.4); Platelet Count Result 143 k/mm3 (150-375); Red Blood Count 4.12 M/mm3 (4.2-5.4); Red Cell Distribution Width 15.2 % (11.5-14.5); White Blood Count 9.7 K/mm3 (4.5-10.0)
[2023-06-30] MEDS: LACTATED RINGERS 1,000 ML 125 ML IV CONT ×2 (05:49→11:30)
[2023-06-30] MEDS: OXYTOCIN 30 UNITS/NS 500 ML 30 UNITS/500 ML BAG IV CONT (05:50)
[2023-06-30] MEDS: miSOPROStol 25 MCG TABLET PO (06:29)
[2023-06-30 06:51] LABS: Basophils Percent Auto 0.2 % (0.2-1.2); Eosinophils Absolute Auto 0.1 K/mm3 (0-0.3); Eosinophils Percent Auto 0.6 % (0-4.4); Immature Granulocyte Absolute 0.08 K/mm3 (0.00-0.031); Immature Granulocyte Percent A 0.8 % (0-0.5); Lymphocytes Absolute Auto 2.59 K/mm3 (0.9-3.2); Lymphocytes Percent Auto 26.8 % (18.3-44.2); Monocytes Absolute Auto 0.6 K/mm3 (0.1-0.6); Monocytes Percent Auto 5.8 % (2.6-8.5); Neutrophils Absolute Auto 6.3 K/mm3 (1.3-6.7); Neutrophils Percent Auto 65.8 % (45.5-73.1)
[2023-06-30 06:54] LABS: Platelet Estimate Adequate (Adequate)
[2023-06-30 06:55] LABS: Large Platelets Present; Ovalocytes 1+ (NORMAL); Schistocytes None Seen (NORMAL)
--- NOTE | 2023-06-30 07:29 | PM.IMHP ---
H&P: HPI History of Present Illness Date/Time: 06/30/23 07:29 Chief Complaint: Induction of labor Narrative: Gabriela is a 27yo @ 39.1wks who presents for elective IOL. She reports irregular contractions. Good movement. No VB or LOF. Her is complicated by: - Low platelets diagnosed on arrival; 147k Review of Systems Constitutional: Constitutional: Denies chills, Denies fever(s) and Denies headache(s) Eyes: Eyes: Denies change in vision ENT: Denies headache(s) Cardiovascular: Cardiovascular: Denies chest pain and Denies dyspnea Respiratory: Respiratory: Denies dyspnea Genitourinary: Genitourinary: Denies abnormal vaginal bleeding and Denies vaginal discharge Neurologic: Denies headache(s) Psychiatric: Psychiatric: Denies anxiety and Denies depression PMFSH Past Medical History Medical History Missed with demise before 20 completed weeks of gestation 01/07/22 suction d&c Purulent drainage of both ears through ear tube x 7 Surgical History Surgical History H/O myringotomy History of gynecologic surgery suction D&C - 04/30/2022 History of gynecological procedure (01/07/22) suction D&C missed AB @ 1 weeks History of tonsillectomy Family History Family History Grandparent Acute myocardial infarction maternal grandfather Social History Social History Smoking status: Never smoker Tobacco type: cigarettes Second hand tobacco smoke exposure: No Additional smoking assessment comments: PT STATES SOCIAL SMOKER - BUT NONE FOR LAST COUPLE OF WEEKS Alcohol intake: never Substance use: never Substance use type: marijuana Other substance usage details: daily Last use: 04/22/22 Lack of Transportation: No Lack of Food: Never True Current Housing: I Have Housing Concerned About Future Housing: No Difficulty Paying Gas/Electric Bills: No Difficulty Paying for Meds: No Currently Unemployed: No Education: High School Diploma/GED Difficulty w/ Childcare or Family Care: No Living arrangements: with family Additional living arrangements comments: LIVES WITH DAUGHTER Occupation/Education: unemployed Gender identity (if verbalized by the patient): Female Sexual Orientation (if Verbalized by the Patient): Straight or Heterosexual Spiritual care concerns: No Meds Home Medications and Allergies Home Medications Medication Instructions Recorded Confirmed Type omeprazole 20 mg capsule,delayed 20 mg PO DAILY #90 caps 03/19/23 06/25/23 Rx release ferrous sulfate 325 mg (65 mg 325 mg PO DAILY #30 tabs 04/16/23 06/25/23 Rx iron) tablet (FeroSul) docosahexaenoic acid 200 mg 200 mg PO DAILY 05/14/23 06/25/23 History capsule ( DHA) magnesium oxide 400 mg (241.3 mg 400 mg PO DAILY #30 tabs 06/04/23 06/25/23 Rx magnesium) tablet Allergies Allergy/AdvReac Type Severity Reaction Status Date / Time No Known Allergies Allergy Verified 06/25/23 17:08 Vital Signs Vital Signs - 24 hr 06/30/23 05:18 06/30/23 06:00 06/30/23 06:21 Temperature 98.7 F Pulse Rate 107 H 102 H Blood Pressure 125/79 119/57 L 06/30/23 06:30 06/30/23 07:01 06/30/23 06:31 Temperature Pulse Rate 105 H 105 H 105 H Blood Pressure 108/67 107/61 108/67 Exam Const: General: cooperative, no acute distress and obese Nutritional Appearance: obese Orientation/consciousness: patient oriented x3 Resp: Effort & Inspection: normal respiratory effort Cardio: Rate: regular rate GI: GI Palp: No abdominal tenderness : Other: FHT's: 130's/ mod nito/ + accels/ no decels - cat 1 TOCO: irregular ctxs Cervix: 1.5/thick/-3 Membranes: intact Presentation: cephalic Skin: General skin exam: normal color Ne
--- NOTE | 2023-06-30 07:34 | WPDHPUPDATE1 ---
History and Physical Update Update Date/Time: 06/30/23 07:34 History and Physical has been reviewed, including an updated exam of the patient. There are NO changes in the patient's condition. Risks, benefits, and alternatives have been discussed and questions answered. Patient agrees to proceed with procedure.
--- NOTE | 2023-06-30 09:51 | PM.OBPNLAB ---
Pain Control Date/time seen: 06/30/23 09:51 Pain control: tolerating well Pelvic Exam Dilation (cm): 2 (.5) Effacement (%): 50 station: -2 Amniotic membrane status: Ruptured (AROM, clear 0950) Contractions Monitor mode: External Contraction frequency: 1 (-2) Status status: Category l Assessment and Plan Assessment: induction ongoing Comments: - will start pitocin augmentation
--- NOTE | 2023-06-30 11:01 | WPDANESEPP ---
Anes - Eval Pre Procedure Procedure: labor epidural Date/Time: 06/30/23 11:01 Surgeon: Shai Preop Diagnosis: pain during labor Pre Op Diagnosis: IOL Patient Data Age: 27 Gender: F Height: 1.52 m Weight: 82 kg Last Vital Signs Temp 37.0 C 06/30/23 09:49 Pulse 102 H 06/30/23 08:30 BP 105/70 06/30/23 08:30 Allergies Allergy/AdvReac Type Severity Reaction Status Date / Time No Known Allergies Allergy Verified 06/25/23 17:08 Home Medications Medication Instructions Recorded Confirmed Type omeprazole 20 mg capsule,delayed 20 mg PO DAILY #90 caps 03/19/23 06/25/23 Rx release ferrous sulfate 325 mg (65 mg 325 mg PO DAILY #30 tabs 04/16/23 06/25/23 Rx iron) tablet (FeroSul) docosahexaenoic acid 200 mg 200 mg PO DAILY 05/14/23 06/25/23 History capsule ( DHA) magnesium oxide 400 mg (241.3 mg 400 mg PO DAILY #30 tabs 06/04/23 06/25/23 Rx magnesium) tablet Laboratory Tests 06/30/23 06/30/23 05:33 06:38 WBC 9.7 K/mm3 (4.5-10.0) RBC 4.12 L M/mm3 (4.2-5.4) Hgb 11.9 L g/dL (12.0-15.0) Hct 37.1 % (37.0-47.0) MCV 90.0 fl (80-100) MCH 28.9 pg (26-34) MCHC 32.1 g/dl (32-36) RDW 15.2 H % (11.5-14.5) Plt Count 143 L D k/mm3 (150-375) MPV 12.3 H fl (7.4-10.4) Immature Gran % (Auto) 0.8 H % (0-0.5) Neut % (Auto) 65.8 % (45.5-73.1) Lymph % (Auto) 26.8 % (18.3-44.2) [place] % (Auto) 5.8 % (2.6-8.5) Eos % (Auto) 0.6 % (0-4.4) Baso % (Auto) 0.2 % (0.2-1.2) Lymph # (Auto) 2.59 K/mm3 (0.9-3.2) [place] # (Auto) 0.6 K/mm3 (0.1-0.6) Eos # (Auto) 0.1 K/mm3 (0-0.3) Baso # (Auto) 0.0 K/mm3 (0.0-0.1) Abs Immat Gran (auto) 0.08 H K/mm3 (0.00-0.031) Absolute Neuts (auto) 6.3 K/mm3 (1.3-6.7) Absolute Nucleated RBC 0.0 K/mm3 (0.0-0.012) Nucleated RBC % 0.0 % (0.0-0.2) Platelet Estimate Adequate (Adequate) Large Platelets Present % Immature Plt Fraction 13.4 H % (0.9-11.2) Ovalocytes 1+ (NORMAL) Schistocytes None seen (NORMAL) RPR Pending Blood Type A Positive Antibody Screen Negative Patient hx anesthesia problems: none Family hx anesthesia problems: none Results Review: All pre-operative results and documents have been reviewed as part of the pre-operative evaluation. [facility] Past Medical History Medical History Missed with demise before 20 completed weeks of gestation 01/07/22 suction d&c Purulent drainage of both ears through ear tube x 7 Surgical History Surgical History H/O myringotomy History of gynecologic surgery suction D&C - 04/30/2022 History of gynecological procedure (01/07/22) suction D&C missed AB @ 1 weeks History of tonsillectomy Family History Family History Grandparent Acute myocardial infarction maternal grandfather Social History Social History Smoking status: Never smoker Tobacco type: cigarettes Second hand tobacco smoke exposure: No Additional smoking assessment comments: PT STATES SOCIAL SMOKER - BUT NONE FOR LAST COUPLE OF WEEKS Alcohol intake: never Substance use: never Substance use type: marijuana Other substance usage details: daily Last use: 04/22/22 Do You Feel Safe in your Home?: Yes Lack of Transportation: No Lack of Food: Never True Current Housing: I Have Housing Concerned About Future Housing: No Difficulty Paying Gas/Electric Bills: No Difficulty Paying for Meds: No Currently Unemployed: No Education: High School Diploma/GED Difficulty w/ Childcare or Family Care: N
[2023-06-30 13:16] LABS: Rapid Plasma Reagin Non-Reactive (NonReactive)
--- NOTE | 2023-06-30 15:23 | PM.OBPRVD ---
OB - Vaginal Delivery Note Procedure Delivery date: 06/30/23 Events: Elective Induction of Labor Induction method: Per Cervidil Protocol Delivery augmentation: Rupture of Membranes and Pitocin Delivery monitor: External FHT and Internal Uterine Route of delivery: Laceration Description: None Quantitative Blood Loss (ml): 300 Anesthesia type: Epidural Disposition: Floor Complications: No immediate complications [place] Baby Date of : 06/30/23 Time of : 14:54 Weeks of gestation at delivery: 39 (.1) Infant gender: Male Weight (pounds): 6 Weight (ounces): 9 presentation: compound Placenta delivery description: Expressed Cord Vessel Description: 3 Vessels and Delayed Cord Clamping score one minute: 8 score five minutes: 9 Narrative: Linda rapidly progressed to complete dilation with strong desire to push. She pushed for approximately 5 contractions with good maternal effort delivered the head over intact perineum, in compound presentation. No nuchal cord was palpated. She easily delivered the 's shoulders and body without complication. He was immediately placed skin to skin and had spontaneous cry. Delayed cord clamping was performed. The umbilical cord was then doubly clamped and cut. Segment of cord was collected for cord gases. The remaining cord blood was collected for typing. With Pitocin running and gentle downward traction on the cord, the placenta delivered without complications. Bimanual massage was performed and good uterine tone with minimal bleeding was noted. She was examined and no lacerations were identified good uterine tone with minimal bleeding remained. Sponge, lap, instrument, needle counts were correct at the end of the procedure. Mom and baby were left bonding in the birthing suite in stable condition. [facility] Delivery Billing Delivery Delivery: Delivery Charge
[2023-06-30] MEDS: OXYTOCIN 30 UNITS/NS 500 ML 30 UNITS/500 ML BAG 125 UNITS IV CONT (15:26)
[2023-06-30] MEDS: IBUPROFEN 600 MG TABLET PO (16:37)
[2023-06-30] MEDS: WITCH HAZEL 40 PADS 1 PAD TOPICAL (17:20)
[2023-06-30] MEDS: ACETAMINOPHEN 325 MG TABLET 650 MG PO (18:52)
[2023-07-01] MEDS: IBUPROFEN 600 MG TABLET PO ×3 (00:10→17:15)
[2023-07-01] MEDS: ACETAMINOPHEN 325 MG TABLET 650 MG PO ×3 (04:10→21:45)
[2023-07-01 05:13] LABS: Hematocrit 32.2 % (37.0-47.0); Hemoglobin 10.4 g/dL (12.0-15.0)
--- NOTE | 2023-07-01 06:43 | P.PNOB_ITS ---
OB - PN: Subj Subjective Date/time seen: 07/01/23 06:43 Narrative: PPD#1 Gabriela reports doing well today. 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 Her pain is controlled. She is tolerating regular diet, voiding, passing gas, and ambulating without issues. She is breast feeding. She would like her son circumcised. OB - PN: Obj Data Labs 07/01/23 04:09 Labs: Laboratory Results - last 24 hr 06/30/23 06/30/23 07/01/23 05:33 06:38 04:09 WBC 9.7 RBC 4.12 L Hgb 11.9 L 10.4 L Hct 37.1 32.2 L MCV 90.0 MCH 28.9 MCHC 32.1 RDW 15.2 H Plt Count 143 L D MPV 12.3 H Immature Gran % (Auto) 0.8 H Neut % (Auto) 65.8 Lymph % (Auto) 26.8 [place] % (Auto) 5.8 Eos % (Auto) 0.6 Baso % (Auto) 0.2 Lymph # (Auto) 2.59 [place] # (Auto) 0.6 Eos # (Auto) 0.1 Baso # (Auto) 0.0 Abs Immat Gran (auto) 0.08 H Absolute Neuts (auto) 6.3 Absolute Nucleated RBC 0.0 Nucleated RBC % 0.0 Platelet Estimate Adequate Large Platelets Present % Immature Plt Fraction 13.4 H Ovalocytes 1+ Schistocytes None seen RPR Non-reactive Blood Type A Positive Antibody Screen Negative OB - PN A/P Assessment and Plan (1) (normal spontaneous vaginal delivery): Code(s): O80 - Encounter for full-term uncomplicated delivery Status: Acute Plan day: 1 Plan: routine care Comments: - circ performed w/o issue Time Spent With Patient Time: Total time spent is greater than 50% in coordination of care (as documented) at patient's floor/unit and/or counseling patient: Review of Systems Constitutional: Constitutional: Denies chills, Denies fever(s) and Denies headache(s) Eyes: Eyes: Denies change in vision ENT: Denies dizziness and Denies headache(s) Cardiovascular: Cardiovascular: Denies chest pain, Denies palpitations and Denies dyspnea Respiratory: Respiratory: Denies cough and Denies dyspnea Gastrointestinal: Gastrointestinal: Denies nausea and Denies vomiting Neurologic: Denies dizziness and Denies headache(s) Endocrine: Endocrine: Denies palpitations Exam Const: General: cooperative, comfortable and no acute distress Orientation/consciousness: patient oriented x3 Resp: Effort & Inspection: normal respiratory effort Auscultation: clear to auscultation bilaterally Cardio: Rate: regular rate GI: Inspection: non-distended GI Palp: No abdominal tenderness and Yes Soft to palpation Auscultation: normal bowel sounds : Other: fundus firm Skin: General skin exam: normal color Neuro: General: patient oriented x3 Extrem: General: normal to inspection Psych: Appearance: grossly normal Affect: normal affect Attitude: cooperative
[2023-07-01 08:22] VITALS: BP 100/60; PULSE 99; RESP 16; TEMP 37.1; O2SAT 98
[2023-07-01] MEDS: MULTIVIT/MIN/PREN/FOL AC/IRON TABLET 1 TAB PO (08:24)
[2023-07-01] MEDS: DOCUSATE SODIUM 100 MG CAPSULE PO (08:25)
--- NOTE | 2023-07-01 09:40 | PC.NURSE ---
[id number] Introductions were made, then consulted with patient to assess needs related to . Mother led the conversation with her?plans to feed?her infant, the?experience so far with a nipple shield, infant is sleepy and will not wake to feed and was circumcised this morning. hasn't breastfed since 0300 and mother states that was with a nipple shield, infant is jittery so, blood sugar was checked and resulted at 80mg/dl. Mother is laying side-lying with her infant in bed do to having a bad headache when she sits up when LC RN enters the room. Encouraged understanding of the benefits of skin to skin (demonstrating unwrapping and placing upright on her chest), stimulating with massage touch, changing positions to encourage wakefulness, how to watch for early feeding cues, responsive feeding, feeding on demand (aiming for 8-12 times in 24 hours, about every 2-3 hours), milk production, building/maintaining a milk supply, hand expression/pumping, signs of adequate intake/output and how to record on the feeding sheet. Parents works well with her infant with encouragement and education. Mother demonstrated the technique of hand expression switching breast for about 10 minutes and states her hands are sore. Nipple shield provided to mother prior to meeting LC RN due to ineffective latching. Reviewed good handwashing, cleaning the nipple shield and the appropriate way to apply and use as a tool. Discussed with mom the nipple shield precautions, possible complications associated with the risks and benefits. Reviewed practicing with a nipple shield, then without and how to protect the milk supply and production. Mom voiced understanding of the importance of hand expression, nipple stimulation and initiating a pumping schedule if infant continues to nurse with the shield. was syringe fed 1ml of EBM. Mother voiced understanding of skin to skin, stimulating with massage touch, responsive feedings, hand expressed colostrum, talking to infant to encourage if it has been 2 -2.5 hours since the start of the last , to call if infant does not latch, or if there is discomfort with . Resources used for education were facilitated with the visual educational handouts, mom and baby guide. Inpatient/outpatient resources provided with name written on the communication board, and the mom/baby guide. Parents voiced understanding of information, demonstrated learning and will call when she is ready to initiate pumping. Parents plan to eat breakfast first. Reported to the Primary RN.
[2023-07-01 12:09] VITALS: BP 132/80; PULSE 97; RESP 16; TEMP 36.9; O2SAT 98
--- NOTE | 2023-07-01 12:59 | PC.NURSE ---
[id number] Mother called to the room for assistance. Consulted with patient to assess needs related to . Mother led the conversation with her?plans to feed?her , the?experience so far and has attached to the nipple shield on her breast. is not showing any signs of suckling and is on the tip of the nipple shield with the cut out portion of the shield by the infants cheek. Reviewed good handwashing, cleaning the nipple shield and the appropriate way to apply and use as a tool. Discussed with mom the nipple shield precautions, reviewed practicing with a nipple shield, then without and how to protect the milk supply and production. Encouraged understanding of the benefits of skin to skin, how to watch for early feeding cues, responsive feeding, feeding on demand, milk production, building/maintaining a milk supply, duration of feeding, signs of adequate intake/output and how to record on the feeding sheet. Mother works well with her with encouragement, education despite having a really bad headache when sitting up. Reviewed positioning and ear, shoulder, hip alignment, supporting the breast to facilitate a deep latch, asymmetrical latch (off-center), leading with the chin with a big, open, wide gape and body close to mother. Infant latched optimally to the left breast in cross cradle position with and without the nipple shield. doesn't maintain latch at the breast. Mother states she feels like the attempts are rough and she is hurting her when attempting to latch deeply without the nipple shield and her ultimate goal is to pump and feed. Inpatient/outpatient resources provided with feeding sheet, name written on the communication board, and the mom/baby guide. Parents voiced understanding of information. Reported to the Primary RN.
--- NOTE | 2023-07-01 15:21 | WPDANESEPN ---
Anes - Epidural Procedure Note Date/Time: 07/01/23 15:21 Consent: I have discussed with the patient/family/POA, the placement of an epidural catheter and the use of epidural narcotic/local anesthetic for labor analgesia and/or postoperative pain management, including associated potential risks, benefits, complications and side effects. I have discussed alternative methods of labor analgesia and/or postoperative pain management. The patient/family/POA, understand(s) and wish(es) to proceed with epidural narcotic/local anesthetic for labor analgesia and/or postoperative pain management. Time-Out: A pre-procedural Time-Out was completed immediately before starting the procedure and confirmed: Patient Identification, Site, Procedure, Patient Position and the Availability of Requisite Equipment. Clinical Indications: Pt evaluated by Rodney Parker CRNA after presenting with signs and symptoms of PDPH post epidural placement for Labor. Pt indicated WHITEHEAD that was positional as well as photophobia and nuchal rigidity. At the time of initial evaluation, the pt had opted for traditional treatment options including increased caffeine intake and increased fluid intake. Upon further evaluation while rounding, the pt opted for a Blood patch that was performed by Dr Nails and my self with out incident. Pt reported immediate relief of symptoms related to the PDPH, however she continued having spasms on the right side of her neck. We explained that the neck spasms are not as a result of the dural puncture and informed the nurse that other pain control measures would need to be instituted by her admitting physician. Epidural Insertion Note Patient position: sitting Skin prep: chlorhexidine Needle: 18g Tuohy-Schliff Catheter: 19g Arrow FlexTip Plus Technique: Loss of resistance with saline. 15ml of blood injected into the epidural space until pt indicated fullness in her hips and relief of WHITEHEAD symptoms. Level of insertion: L2/3 Skin anesthesia: lidocaine 1% Observations: tolerated well Complications: none
--- NOTE | 2023-07-01 15:36 | WPDANESEBPP ---
Anes - Epidural Blood Patch PN Date/Time: 07/01/23 15:36 Consent: I have discussed with the patient/family/POA, the rationale of a lumbar epidural autologous blood patch for the treatment of post-dural puncture headache (spinal headache), including associated potential risks, benefits, complications and side effects. I have also discussed more conservative treatment options such as intravenous hydration, caffeine and non-prescription analgesics. The patient/family/POA, understand(s) and wish(es) to proceed with epidural autologous blood patch as treatment for the patient's post-dural puncture headache. Time-Out: A pre-procedural Time-Out was completed immediately before starting the procedure and confirmed: Patient Identification, Site, Procedure, Patient Position and the Availability of Requisite Equipment. Epidural Insertion Note Patient position: sitting Skin prep: chlorhexidine and sterile drape Needle: 18 gauge Tuohy-Schliff Technique: loss of resistance Skin anesthesia: lidocaine 1% Observations: tolerated well Complications: none
--- NOTE | 2023-07-01 15:36 | WPDANESEPN ---
Anes - Epidural Procedure Note Date/Time: 07/01/23 6811 Consent: I have discussed with the patient/family/POA, the placement of an epidural catheter and the use of epidural narcotic/local anesthetic for labor analgesia and/or postoperative pain management, including associated potential risks, benefits, complications and side effects. I have discussed alternative methods of labor analgesia and/or postoperative pain management. The patient/family/POA, understand(s) and wish(es) to proceed with epidural narcotic/local anesthetic for labor analgesia and/or postoperative pain management. Time-Out: A pre-procedural Time-Out was completed immediately before starting the procedure and confirmed: Patient Identification, Site, Procedure, Patient Position and the Availability of Requisite Equipment. Clinical Indications: Pt evaluated by Rodney Parker CRNA after presenting with signs and symptoms of PDPH post epidural placement for Labor. Pt indicated WHITEHEAD that was positional as well as nuchal rigidity. At the time of initial evaluation, the pt had opted for traditional treatment options including increased caffeine intake and increased fluid intake. Upon further evaluation while rounding, the pt opted for a Blood patch that was performed by Codi Grubbs CRNA and my self with out incident. Pt reported immediate relief of symptoms related to the PDPH. Pt happy with overall anesthesia experience. Epidural Insertion Note Patient position: sitting Skin prep: chlorhexidine Needle: 17g Tuohy Technique: Loss of resistance. 15ml of blood injected into epidural space until symptoms resolved. Level of insertion: L2/3 Skin anesthesia: lidocaine 1% Observations: tolerated well Complications: none
--- NOTE | 2023-07-01 17:01 | WPDANLDPN2 ---
Anes-Prog Note L&D Date/Time: 07/01/23 17:01 Neuro status: Neuro function grossly intact. Cardiovascular status: normal Respiratory status: normal Airway patency: baseline Mental status: baseline Post-Op hydration status: normal Vital Signs: Last Vital Signs Temp 36.9 C 07/01/23 12:09 Pulse 97 07/01/23 12:09 Resp 16 07/01/23 12:09 BP 132/80 07/01/23 12:09 Pulse Ox 98 07/01/23 12:09 O2 Del Method Room Air 07/01/23 08:25 Pain score (VAS): 0 Post-procedural complaints: none Patient feedback: Patient satisfied with anesthetic care.
--- NOTE | 2023-07-01 19:00 | PC.NURSE ---
1145 called Anaesthesia to come and evaluate pt for symptoms of a Spinal Headache. 1355 here to evaluate pt. 1400 Blood Patch done. Pt laying flat in her bed for 1 hour.
[2023-07-01 19:26] VITALS: BP 108/66; PULSE 97; RESP 18; TEMP 37.1
--- NOTE | 2023-07-02 07:14 | PM.OBDSVD ---
DS: Admitting Diagnosis Discharge Date 07/02/23 Admitting Diagnosis Elective IOL DS: Discharge Diagnosis Discharge Diagnosis (1) (normal spontaneous vaginal delivery): Code(s): O80 - Encounter for full-term uncomplicated delivery Status: Acute OB - DS: Summary OB Procedures : Ultrasound OB Procedures Intrapartum: Spontaneous Vag Delivery OB Procedures: : None Peripartum Data Infant Delivery Method: Natural Vaginal Laceration Description: None complications: none 1: Gender: Male Disposition of : home Status at Discharge Functional status at discharge: independent ambulation Overall status at discharge: patient is back to baseline Time Spent with Patient Time attestation: Total time spent providing and/or coordinating discharge services: Time spent: Less than 30 minutes Exam Const: General: cooperative, comfortable and no acute distress Orientation/consciousness: patient oriented x3 Resp: Effort & Inspection: normal respiratory effort Auscultation: clear to auscultation bilaterally Cardio: Rate: regular rate GI: Inspection: non-distended GI Palp: No abdominal tenderness and Yes Soft to palpation Auscultation: normal bowel sounds : Other: fundus firm Skin: General skin exam: normal color Neuro: General: patient oriented x3 Extrem: General: normal to inspection Psych: Appearance: grossly normal Affect: normal affect Attitude: cooperative DS: Data Data Completed and Pending Labs on day of discharge: Labs from last 24 hours 07/01/23 04:09 Hgb 10.4 L Hct 32.2 L Discharge Plan Discharge Attending physician on discharge: Estefani Gibbons Discharging Clinician: Estefani Gibbons Anticipated Discharge Date/Time: 07/02/23 14:00 Patient Disposition: Home, Self-Care Activity: may shower and pelvic rest Diet: regular Patient Instructions: Vaginal Delivery (DC) Stand Alone Forms: General Discharge Information Follow-up/Referrals: Estefani Gibbons MD [Primary Care Provider] - 4 Weeks Discharge Medications: New docusate sodium 100 mg Capsule 100 mg PO BID PRN (Reason: Constipation) Qty: 100 0RF ibuprofen 600 mg Tablet 600 mg PO Q6H PRN (Reason: Cramping) Qty: 40 0RF acetaminophen 500 mg tablet 1,000 mg PO TID Qty: 60 0RF Continued omeprazole 20 mg capsule,delayed release(DR/EC) 20 mg PO DAILY Qty: 90 2RF ferrous sulfate [FeroSul] 325 mg (65 mg iron) tablet 325 mg PO DAILY Qty: 30 2RF DHA 200 mg capsule 200 mg PO DAILY magnesium oxide 400 mg (241.3 mg magnesium) tablet 400 mg PO DAILY Qty: 30 2RF Date of admission: 06/30/23 04:55 Primary Care Provider: Estefani Gibbons Admitting Provider: Estefani Gibbons Attending physician on admission: Estefani Gibbons Condition: Stable
[2023-07-02] MEDS: IBUPROFEN 600 MG TABLET PO (08:08)
[2023-07-02] MEDS: MULTIVIT/MIN/PREN/FOL AC/IRON TABLET 1 TAB PO (08:08)
[2023-07-02] MEDS: DOCUSATE SODIUM 100 MG CAPSULE PO (08:08)
[2023-07-02 08:55] VITALS: BP 102/59; PULSE 85; RESP 78; TEMP 36.7; O2SAT 99
[2023-07-02] MEDS: DIBUCAINE 1% OINTMENT 30 GM TUBE 1 APPLIC TOPICAL (10:35)
[2023-07-02] MEDS: WITCH HAZEL 40 PADS 1 PAD TOPICAL (10:41)
[2023-07-02] MEDS: LANOLIN (LANSINOH) 7.5 GM CREAM 1 APPLIC TOPICAL (10:41)
[2023-07-03 10:46] VITALS: BP 125/66; PULSE 91; RESP 18; TEMP 37.2; O2SAT 97
--- NOTE | 2023-07-03 14:27 | WPDANLDPN2 ---
Anes-Prog Note L&D Date/Time: 07/03/23 14:27 Neuro status: Neuro function grossly intact. Cardiovascular status: normal Respiratory status: normal Airway patency: baseline Mental status: baseline Post-Op hydration status: normal Vital Signs: Last Vital Signs Temp 98.9 F 07/03/23 10:46 Pulse 91 07/03/23 10:46 Resp 18 07/03/23 10:46 BP 125/66 07/03/23 10:46 Pulse Ox 97 07/03/23 10:46 O2 Del Method Room Air 07/02/23 08:08 Pain score (VAS): 310 Post-procedural complaints: none Patient feedback: Patient satisfied with anesthetic care. Pt presents with WHITEHEAD located primarily to the front of head. Upon evaluation, pt presents no s/s of ongoing PDPH. Pt reports no photophobia, nuchal rigidity, or postural WHITEHEAD changes. Informed pt that if WHITEHEAD gets worse or there is a change in her symptoms to contact her OB or come back for further evaluation.
== END 2023-07-02 14:14 | disposition home or self-care (01) | DRG 560 ==
LOC: ANHLDR 05:02 → ANHOB2 17:54
PROVIDERS: Admitting Provider Obstetrics & Gynecology; PCP Obstetrics & Gynecology; Visit Provider Obstetrics & Gynecology
DX: O32.6XX0 Maternal care for compound presentation, not applicable or unspecified (principal); O36.8230 Fetal anemia and thrombocytopenia, third trimester, not applicable or unspecified; Z3A.39 39 weeks gestation of pregnancy; Z37.0 Single live birth
CPT/HCPCS: 36415; 85014; 85018; 85025; 85055; 86592; 86850; 86900; 86901; A9270; J2590; J2795; J7120

== ENCOUNTER 2023-09-09 16:43 | Outpatient (CLI) | payer OTHER, SELFPAY ==
[2023-09-09 18:08] LABS: Beta HCG Quantitative < 2.39 mIU/ML
== END 2023-09-09 16:44 | disposition home or self-care (01) ==
LOC: ANHLAB 16:44
PROVIDERS: PCP Obstetrics & Gynecology; Visit Provider Obstetrics & Gynecology
DX: Z97.5 Presence of (intrauterine) contraceptive device (principal)
CPT/HCPCS: 36415; 84702